=== PATIENT | male | born 1990 | race Hispanic/Latino ===

== ENCOUNTER 2021-01-15 18:43 | Emergency (ER) | payer BC ==
[2021-01-15] MEDS ORDERED: ONDANSETRON 4 MG/2 ML VIAL ONE (22:09)
[2021-01-15] MEDS ORDERED: DICYCLOMINE HCL 20 MG/2 ML AMP IM ONE (22:10)
[2021-01-15 22:20] LABS: Absolute Lymphocytes (CBC) 3.4 K/uL (0.7-4.9); Basophils % 0.7 % (0-1.3); Hematocrit 49.3 % (39.6-49.0); Lymphocytes % 24.9 % (15.3-44.8); MPV 10.2 fL (7.6-11.3); RBC Red Blood Cell Count 5.49 M/uL (4.33-5.43)
[2021-01-15 22:45] LABS: ALT/SGPT 46 U/L (12-78); AST/SGOT 18 U/L (15-37); Albumin 3.9 g/dL (3.4-5.0); Alkaline Phosphatase 84 U/L (45-117); BUN Blood Urea Nitrogen 11 mg/dL (7-18); Bicarbonate 29 mmol/L (21-32); Bilirubin Direct < 0.1 mg/dL (0-0.2); Bilirubin Total 0.4 mg/dL (0.2-1.0); Glucose Level 92 mg/dL (74-106); Lipase 156 U/L (73-393); Potassium 3.5 mmol/L (3.5-5.1); Protein, Total 7.9 g/dL (6.4-8.2); Sodium Level 141 mmol/L (136-145)
--- NOTE | 2021-01-15 23:08 | ER ---
Nurse's Notes [facility] Name: Ambrocio Fontenot Age: 30 yrs Sex: Male : 1990 Arrival Date: 01/15/2021 Time: 18:48 Bed 9 Private MD: Diagnosis: Abdominal pain, Generalized;Eosinophilia;Diarrhea, unspecified Presentation: 01/15 19:51 Chief complaint: Patient states: ABD pain X 4 days. Diarrhea and stomach cramps around ld1 my mid section. Denies N/V. Coronavirus screen: At this time, the client does not indicate any symptoms associated with coronavirus-19. Ebola Screen: No symptoms or risks identified at this time. Initial Sepsis Screen: Does the patient meet any 2 criteria? No. Patient's initial sepsis screen is negative. Does the patient have a suspected source of infection? No. Patient's initial sepsis screen is negative. Risk Assessment: Do you want to hurt yourself or someone else? Patient reports no desire to harm self or others. Onset of symptoms was January 15, 2021. 19:51 Method Of Arrival: Ambulatory ld1 19:51 Acuity: HUGO 3 ld1 Triage Assessment: 19:52 General: Appears in no apparent distress. comfortable, Behavior is calm, cooperative, ld1 appropriate for age. Pain: Complains of pain in right upper quadrant and left upper quadrant Pain does not radiate. Pain currently is 6 out of 10 on a pain scale. Quality of pain is described as burning, aching, throbbing, Pain began gradually, Is continuous. EENT: No signs and/or symptoms were reported regarding the EENT system. Neuro: Level of Consciousness is awake, alert, obeys commands, Oriented to person, place, time, situation, Appropriate for age. Cardiovascular: Capillary refill < 3 seconds Patient's skin is warm and dry. Respiratory: Airway is patent Respiratory effort is even, unlabored, Respiratory pattern is regular, symmetrical. GI: Abdomen is flat, non-distended. : No signs and/or symptoms were reported regarding the genitourinary system. Derm: No signs and/or symptoms reported regarding the dermatologic system. Musculoskeletal: No signs and/or symptoms reported regarding the musculoskeletal system. Historical: - Allergies: 19:52 Cold medicine; ld1 - Home Meds: 19:52 None [Active]; ld1 - PMHx: 19:52 None; ld1 - PSHx: 19:52 None; ld1 - Immunization history:: Adult Immunizations up to date, Client reports having NOT received the Covid vaccine. - Social history:: Smoking status: Patient denies any tobacco usage or history of. Patient uses alcohol, occasionally. Patient/guardian denies using street drugs. Screenin:25 Abuse screen: Denies threats or abuse. Nutritional screening: No deficits noted. bb Tuberculosis screening: No symptoms or risk factors identified. Fall Risk None identified. Assessment: 22:34 General: Appears in no apparent distress. Behavior is calm, cooperative. Pain: bb Complains of pain in abdomen. Neuro: Level of Consciousness is awake, alert, obeys commands, Oriented to person, place, time, situation. Cardiovascular: Capillary refill < 3 seconds. Respiratory: Respiratory effort is even, unlabored, Respiratory pattern is regular. GI: GI: Abdomen is non-distended. Derm: Skin is pink, warm \T\ dry. Musculoskeletal: Circulation, motion, and sensation intact. 23:43 Reassessment: Patient is alert, oriented x 3, equal unlabored respirations, skin bb warm/dry/pink. pt verbalized understanding of and agrees to plan of care discharge instructions given pt ambulated with steady gait to exit. Vital Signs: 19:51 BP 137 / 79; Pulse 73; Resp 19; Temp 98.6(O); Pulse Ox 98% on R/A; Weight 81.65 kg; ld1 Height 5 ft. 6 in. (167.64 cm); Pain 6/10; 21:48 BP 124 / 74; Pulse 58; Resp 14; Pulse Ox 100% on R/A; ds4 22:25 BP 120 / 76; Pulse 58; Resp 16 S; Pulse Ox 99% on R/A; bb 23:44 BP 115 / 63; Pulse 57; Resp 16 S; Temp 99(O); Pulse Ox 98% ; bb 19:51 Body Mass Index 29.05 (81.65 kg, 167.64 cm) ld1 ED Course: 18:48 Patient arrived in ED. ds1 19:52 Triage completed. ld1 19:52 Arm band placed on left wrist. ld1 21:32 Sekou Luther PA is PHCP. jr8 21:32 Shiva Ragland MD is Attending Physician. jr8 21:57 Inserted saline lock: 20 gauge in right antecubital area, using aseptic technique. ds4 Blood collected. 22:25 Patient has correct armband on for positive identification. Bed in low position. Side bb rails up X 1. 22:34 Trupti Rios, RN is Primary Nurse. bb 22:39 US Abdomen Limited In Process Unspecified. EDMS 23:07 Jh Jang MD is Referral Physician. jr8 23:44 No provider procedures requiring assistance completed. IV discontinued, intact, bb bleeding controlled, No redness/swelling at site. Pressure dressing applied. Administered Medications: 22:25 Drug: Bentyl (dicyclomine) 20 mg Route: IM; Site: right gluteus; bb 23:43 Follow up: Response: No adverse reaction bb 22:25 Drug: Zofran (Ondansetron) 4 mg Route: IVP; Site: right antecubital; bb 23:43 Follow up: Response: No adverse reaction bb Outcome: 23:07 Discharge ordered by . jr8 23:45 Discharged to home ambulatory. bb 23:45 Condition: stable 23:45 Discharge instructions given to patient, Instructed on discharge instructions, follow up and referral plans. medication usage, Demonstrated understanding of instructions, follow-up care, medications, Prescriptions given X 2. 23:45 Patient left the ED. bb Signatures: Dispatcher [employer] [facility] Nell Douglas ds1 Trupti Rios, RN RN bb Sekou Ltuher PA PA jr8 Aidan Leach ds4 Yasmeen Harrell RN RN ld1 Corrections: (The following items were deleted from the chart) 19:54 19:52 Allergies: No Known Allergies; ld1 ld1 19:55 19:51 Pulse 73bpm; Resp 19bpm; Pulse Ox 98% RA; Temp 98.6F Oral; 81.65 kg; Height 5 ft. ld1 6 in.; BMI: 29.0; Pain 6/10; ld1
--- NOTE | 2021-01-15 23:08 | EDPHYS ---
Physician Documentation [facility] Name: Ambrocio Fontenot Age: 30 yrs Sex: Male : 1990 Arrival Date: 01/15/2021 Time: 18:48 Bed 9 Private MD: ED Physician Shiva Ragland HPI: 01/15 22:29 This 30 yrs old Male presents to ER via Ambulatory with complaints of jr8 Abdominal Pain. 22:29 The patient presents with abdominal pain in the upper abdomen, in the right upper jr8 quadrant. Onset: The symptoms/episode began/occurred gradually. The symptoms do not radiate. Associated signs and symptoms: Pertinent positives: diarrhea. The symptoms are described as crampy. Modifying factors: The symptoms are alleviated by nothing, the symptoms are aggravated by nothing. Severity of pain: At its worst the pain was moderate in the emergency department the pain is unchanged. The patient has not experienced similar symptoms in the past. The patient has not recently seen a physician. Historical: - Allergies: 19:52 Cold medicine; ld1 - Home Meds: 19:52 None [Active]; ld1 - PMHx: 19:52 None; ld1 - PSHx: 19:52 None; ld1 - Immunization history:: Adult Immunizations up to date, Client reports having NOT received the Covid vaccine. - Social history:: Smoking status: Patient denies any tobacco usage or history of. Patient uses alcohol, occasionally. Patient/guardian denies using street drugs. ROS: 22:29 Eyes: Negative for injury, pain, redness, and discharge, ENT: Negative for injury, jr8 pain, and discharge, Neck: Negative for injury, pain, and swelling, Cardiovascular: Negative for chest pain, palpitations, and edema, Respiratory: Negative for shortness of breath, cough, wheezing, and pleuritic chest pain, Back: Negative for injury and pain, MS/Extremity: Negative for injury and deformity, Skin: Negative for injury, rash, and discoloration, Neuro: Negative for headache, weakness, numbness, tingling, and seizure. 22:29 Abdomen/GI: Positive for abdominal pain, diarrhea, Negative for nausea and vomiting. Exam: 22:29 Constitutional: This is a well developed, well nourished patient who is awake, alert, jr8 and in no acute distress. Cardiovascular: Regular rate and rhythm with a normal S1 and S2. No gallops, murmurs, or rubs. Normal PMI, no JVD. No pulse deficits. Respiratory: Lungs have equal breath sounds bilaterally, clear to auscultation and percussion. No rales, rhonchi or wheezes noted. No increased work of breathing, no retractions or nasal flaring. Back: No spinal tenderness. No costovertebral tenderness. Full range of motion. Skin: Warm, dry with normal turgor. Normal color with no rashes, no lesions, and no evidence of cellulitis. MS/ Extremity: Pulses equal, no cyanosis. Neurovascular intact. Full, normal range of motion. Neuro: Awake and alert, GCS 15, oriented to person, place, time, and situation. Cranial nerves II-XII grossly intact. Motor strength 5/5 in all extremities. Sensory grossly 22:29 Abdomen/GI: Inspection: abdomen appears normal, Bowel sounds: active, all quadrants, Palpation: soft, in all quadrants, mild abdominal tenderness, in the epigastric area and right upper quadrant, mass, is not appreciated, rebound tenderness, is not appreciated, voluntary guarding, is not appreciated, involuntary guarding, is not appreciated, no appreciated organomegaly, Indicators: McBurney's point is not tender, Gage's sign is negative, Rovsing's sign is negative, Liver: tenderness, is not appreciated. Vital Signs: 19:51 BP 137 / 79; Pulse 73; Resp 19; Temp 98.6(O); Pulse Ox 98% on R/A; Weight 81.65 kg; ld1 Height 5 ft. 6 in. (167.64 cm); Pain 6/10; 21:48 BP 124 / 74; Pulse 58; Resp 14; Pulse Ox 100% on R/A; ds4 22:25 BP 120 / 76; Pulse 58; Resp 16 S; Pulse Ox 99% on R/A; bb 23:44 BP 115 / 63; Pulse 57; Resp 16 S; Temp 99(O); Pulse Ox 98% ; bb 19:51 Body Mass Index 29.05 (81.65 kg, 167.64 cm) ld1 MDM: 21:32 Patient medically screened. jr8 23:02 Data reviewed: vital signs, nurses notes, lab test result(s), radiologic studies, jr8 ultrasound. Data interpreted: Pulse oximetry: on room air is 99 %. Interpretation: normal. 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 ED course: Discussed with patient that his ultrasound essentially was negative. Small polyp present but otherwise no other acute abnormality. Majority of his blood work was within normal limits although patient did have a moderately elevated eosinophilic count. This could possibly be a potential cause of his abdominal cramping and diarrhea. 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 01/15 21:47 Order name: Basic Metabolic Panel; Complete Time: 22:48 [facility] 01/15 21:47 Order name: CBC with Diff; Complete Time: 01:13 [facility] 01/15 21:47 Order name: Hepatic Function; Complete Time: 22:48 [facility] 01/15 21:47 Order name: Lipase; Complete Time: 22:48 [facility] 01/15 22:31 Order name: Manual Differential; Complete Time: 01:13 EDMS 01/15 23:26 Order name: Fecal Leukocyte Stain [facility] 01/15 21:47 Order name: IV Saline Lock; Complete Time: 22:00 [facility] 01/15 21:47 Order name: Labs collected and sent; Complete Time: 22:00 [facility] 01/15 21:47 Order name: US Abdomen Limited [facility] 01/15 23:26 Order name: Ova And Parasites [facility] 01/15 23:26 Order name: Stool Culture [facility] Administered Medications: 22:25 Drug: Bentyl (dicyclomine) 20 mg Route: IM; Site: right gluteus; bb 23:43 Follow up: Response: No adverse reaction bb 22:25 Drug: Zofran (Ondansetron) 4 mg Route: IVP; Site: right antecubital; bb 23:43 Follow up: Response: No adverse reaction bb Disposition Summary: 01/15/21 23:07 Discharge Ordered Location: Home [facility] Problem: new jr8 Symptoms: have improved jr8 Condition: Stable jr8 Diagnosis - Abdominal pain, Generalized jr8 - Eosinophilia jr8 - Diarrhea, unspecified jr8 Followup: jr8 - With: Jh Jang MD - When: 2 - 3 days - Reason: Recheck today's complaints, Continuance of care, Re-evaluation by your physician Discharge Instructions: - Discharge Summary Sheet jr8 - Abdominal Pain, Adult jr8 - Diarrhea, Adult jr8 Forms: - Medication Reconciliation Form jr8 - Thank You Letter jr8 - Antibiotic Education jr8 - Prescription Opioid Use jr8 Prescriptions: - Zofran 4 mg Oral Tablet - take 1 tablet by ORAL route every 12 hours As needed; 20 tablet; Refills: 0, jr8 Product Selection Permitted - dicyclomine 20 mg Oral Tablet - take 1 tablet by ORAL route 3 times per day As needed; 20 tablet; Refills: 0, jr8 Product Selection Permitted Addendum: 01/17/2021 09:20 Co-signature as Attending Physician, Shiva Ragland MD I agree with the assessment and c santa plan of care. Signatures: Dispatcher [employer] [facility]ME Shiva Ragland MD MD cha Ballard, Brenda, RN RN Sekou Zapien PA PA jr8 Yasmeen Harrell RN RN ld1 Corrections: (The following items were deleted from the chart) 01/15 19:54 19:52 Allergies: No Known Allergies; ld1 ld1
[2021-01-15 23:44] LABS: Blood Morphology Comment NOT SEEN (NOT SEEN); Platelet Estimate ADEQ
[2021-01-15 23:56] VITALS: BP 115/63; TEMP 99; O2SAT 98
--- NOTE | 2021-01-16 08:34 | RAD REPORT ---
EXAM DESCRIPTION: US - Abdomen Exam Limited - 01/15/2021 10:39 pm CLINICAL HISTORY: Abdominal pain. COMPARISON: None. FINDINGS: The gallbladder wall is not thickened. A gallstone is not seen. 4 millimeter gallbladder polyp The biliary tree is normal caliber. IMPRESSION: 4 millimeter gallbladder polyp. Follow-up ultrasound in 1 year recommended
== END 2021-01-15 23:45 | disposition home or self-care (01) ==
LOC: ER 18:43
DX: D72.10 Eosinophilia, unspecified (principal); R19.7 Diarrhea, unspecified
CPT/HCPCS: 87045; 85025; 80048; 36415; 89055; 87177; 80076; 87046; 87209; 83690; 76705; 96372; 96374; 99284; J0500; J2405

== ENCOUNTER 2021-11-22 06:30 | Observation (INO) | payer BC ==
[2021-11-22] MEDS ORDERED: ONDANSETRON 4 MG/2 ML VIAL ONE ×3 (07:09→13:18)
[2021-11-22] MEDS ORDERED: FAMOTIDINE 20 MG/2 ML VIAL IV ONE (07:09)
[2021-11-22] MEDS ORDERED: MORPHINE 4 MG/ML SYR ONE (07:09)
[2021-11-22] MEDS ORDERED: NA CHLORIDE 0.9% 1,000 ML ONE (07:10)
[2021-11-22 07:34] LABS: Absolute Lymphocytes (CBC) 2.1 K/uL (0.7-4.9); Lymphocytes % 11.2 % (15.3-44.8); MCV 87.6 fL (80-100); MPV 10.3 fL (7.6-11.3); RBC Red Blood Cell Count 5.37 M/uL (4.33-5.43)
[2021-11-22 07:49] LABS: Albumin 4.5 g/dL (3.4-5.0); Bilirubin Total 0.6 mg/dL (0.2-1.0); Potassium 3.4 mmol/L (3.5-5.1); Protein, Total 8.3 g/dL (6.4-8.2)
--- NOTE | 2021-11-22 08:03 | RAD REPORT ---
EXAM DESCRIPTION: US - Abdomen Exam Limited - 11/22/2021 7:34 am CLINICAL HISTORY: ABD PAIN COMPARISON: <Comparisons> FINDINGS: The gallbladder demonstrates a shadowing gallstone No pericholecystic fluid or gallbladder wall thickening. The common bile duct is normal measuring 4 mm. The liver demonstrates no findings of intrahepatic biliary dilatation. IMPRESSION: Cholelithiasis without sonographic evidence acute cholecystitis.
--- NOTE | 2021-11-22 08:21 | RAD REPORT ---
EXAM DESCRIPTION: CTAbdomen Pelvis W Contrast - 11/22/2021 8:08 am CLINICAL HISTORY: Abdominal pain, acute, nonlocalized COMPARISON: Abdomen Exam Limited dated 11/22/2021; CTSTONE PROTOCOL dated 09/29/2013 TECHNIQUE: CT of the abdomen and pelvis was performed. All CT scans are performed using dose optimization technique as appropriate and may include automated exposure control or mA/KV adjustment according to patient size. FINDINGS: Lower chest: No acute abnormality. Liver: No acute abnormality or suspicious lesions. Biliary: No biliary ductal dilatation. Stomach: No significant focal abnormality. Duodenum: No significant focal abnormality. Pancreas: No significant abnormality. Spleen: No significant abnormality. Adrenal: No suspicious lesions. Kidney/ureter: No hydronephrosis. No renal calculi. Retroperitoneum: No retroperitoneal adenopathy. Vascular: No aneurysm. Bowel: Dilated appendix in the right lower quadrant the appendix is mostly fluid-filled and measures approximately 8 millimeters.. Peritoneum: Trace free fluid. Bladder: Grossly unremarkable. Reproductive: No adnexal masses. Bones: No acute fracture. Other: n/a IMPRESSION: Mildly dilated appendix in the right lower quadrant concerning for early or mild acute a ppendicitis.
[2021-11-22 08:25] LABS: Urine Blood Negative (Negative); Urine Glucose Negative (Negative); Urine Protein Negative (Negative); Urine pH 8.5 (5.0-7.0)
[2021-11-22] MEDS ORDERED: PIPERACIL/TAZO 4.5 GM VIAL IV ONE (08:31)
[2021-11-22] MEDS ORDERED: HYDROMORPHONE HCL 0.5 MG/0.5 ML INJ ONE (08:31)
[2021-11-22] MEDS ORDERED: NA CHLORIDE 0.9% 100 ML ONE (08:31)
[2021-11-22 09:08] LABS: SARS-CoV-2 Antigen Rapid Res Negative (Negative)
--- NOTE | 2021-11-22 09:08 | EDPHYS ---
Physician Documentation [facility] Name: Ambrocio Fontenot Age: 31 yrs Sex: Male : 1990 Arrival Date: 11/22/2021 Time: 06:36 Bed 7 Private MD: ED Physician Casa Dumont HPI: 11/22 07:01 This 31 yrs old Male presents to ER via Ambulatory with complaints of rodney Abdominal Cramping, Nausea, Dizziness. 07:02 The patient presents with abdominal pain. rodney 07:39 Onset: The symptoms/episode began/occurred 2 AM . The symptoms do not radiate. jr11 Associated signs and symptoms: Pertinent positives: nausea and vomiting, Pertinent negatives: fever, testicular pain. The symptoms are described as achy, crampy, sharp. Modifying factors: The symptoms are alleviated by nothing, the symptoms are aggravated by. Severity of pain: At its worst the pain was severe in the emergency department the pain is unchanged. Pt with h/o same pain 2 weeks ago, lasted 2 days and resolved. Pt returns today bc pain worsened. . Historical: - Allergies: 06:56 Cold medicine; jb4 - Home Meds: 06:56 None [Active]; jb4 - PMHx: 06:56 None; jb4 - PSHx: 06:56 None; jb4 - Immunization history:: Adult Immunizations up to date. - Social history:: Smoking status: Patient denies any tobacco usage or history of. Patient uses alcohol. - Family history:: not pertinent. ROS: 07:02 Constitutional: Negative for fever, chills, and weight loss, Eyes: Negative for injury, rodney pain, redness, and discharge, ENT: Negative for injury, pain, and discharge, Neck: Negative for injury, pain, and swelling, Cardiovascular: Negative for chest pain, palpitations, and edema, Respiratory: Negative for shortness of breath, cough, wheezing, and pleuritic chest pain, Back: Negative for injury and pain, : Negative for injury, bleeding, discharge, and swelling, MS/Extremity: Negative for injury and deformity, Skin: Negative for injury, rash, and discoloration, Neuro: Negative for headache, weakness, numbness, tingling, and seizure, Psych: Negative for depression, anxiety, suicide ideation, homicidal ideation, and hallucinations, Allergy/Immunology: Negative for hives, rash, and allergies, Endocrine: Negative for neck swelling, polydipsia, polyuria, polyphagia, and marked weight changes, Hematologic/Lymphatic: Negative for swollen nodes, abnormal bleeding, and unusual bruising. 07:02 Abdomen/GI: Positive for abdominal pain, of the right upper quadrant, left upper quadrant, right lower quadrant and left lower quadrant. Exam: 07:02 Constitutional: This is a well developed, well nourished patient who is awake, alert, rodney and in no acute distress. Head/Face: Normocephalic, atraumatic. Eyes: Pupils equal round and reactive to light, extra-ocular motions intact. Lids and lashes normal. Conjunctiva and sclera are non-icteric and not injected. Cornea within normal limits. Periorbital areas with no swelling, redness, or edema. ENT: Nares patent. No nasal discharge, no septal abnormalities noted. Tympanic membranes are normal and external auditory canals are clear. Oropharynx with no redness, swelling, or masses, exudates, or evidence of obstruction, uvula midline. Mucous membranes moist. Neck: Trachea midline, no thyromegaly or masses palpated, and no cervical lymphadenopathy. Supple, full range of motion without nuchal rigidity, or vertebral point tenderness. No Meningismus. Chest/axilla: Normal chest wall appearance and motion. Nontender with no deformity. No lesions are appreciated. Cardiovascular: Regular rate and rhythm with a normal S1 and S2. No gallops, murmurs, or rubs. Normal PMI, no JVD. No pulse deficits. Respiratory: Lungs have equal breath sounds bilaterally, clear to auscultation and percussion. No rales, rhonchi or wheezes noted. No increased work of breathing, no retractions or nasal flaring. Back: No spinal tenderness. No costovertebral tenderness. Full range of motion. Male : Normal genitalia with no discharge or lesions. Skin: Warm, dry with normal turgor. Normal color with no rashes, no lesions, and no evidence of cellulitis. MS/ Extremity: Pulses equal, no cyanosis. Neurovascular intact. Full, normal range of motion. Neuro: Awake and alert, GCS 15, oriented to person, place, time, and situation. Cranial nerves II-XII grossly intact. Motor strength 5/5 in all extremities. Sensory grossly intact. Cerebellar exam normal. Normal gait. Psych: Awake, alert, with orientation to person, place and time. Behavior, mood, and affect are within normal limits. 07:02 Abdomen/GI: Inspection: abdomen appears normal, Bowel sounds: active, Palpation: moderate abdominal tenderness, in all quadrants, Liver: tenderness, that is mild, Hernia: not appreciated. Vital Signs: 06:53 BP 130 / 67; Pulse 85; Resp 50; Temp 99.1; Pulse Ox 100% on R/A; Weight 81.65 kg (R); jb4 Height 5 ft. 6 in. (167.64 cm) (R); Pain 10/10; 07:57 BP 114 / 60; Pulse 72; Resp 17; Pulse Ox 95% on R/A; ll1 09:00 BP 125 / 57; Pulse 88; Resp 18; Pulse Ox 100% on R/A; kr3 10:00 BP 118 / 62; Pulse 74; Resp 18; Pulse Ox 96% on R/A; kr3 06:53 Body Mass Index 29.05 (81.65 kg, 167.64 cm) jb4 MDM: 06:59 Patient medically screened. rodney 07:03 Differential diagnosis: Cholelithiasis, diverticulitis, gastritis, gastroesophageal rodney reflux disease, non-specific abd pain, pancreatitis, Peptic Ulcer Disease. Data reviewed: vital signs, nurses notes, lab test result(s), radiologic studies, CT scan, ultrasound. 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 Counseling: I had a detailed discussion with the patient and/or guardian regarding: the historical points, exam findings, and any diagnostic results supporting the discharge/admit diagnosis, lab results, radiology results. 11/22 07:01 Order name: CBC with Diff; Complete Time: 07:52 rodney 11/22 07:01 Order name: CMP; Complete Time: 07:52 rodney 11/22 07:01 Order name: Lipase; Complete Time: 07:52 rodney 11/22 07:01 Order name: CT Abd/Pelvis - IV Contrast Only rodney 11/22 08:26 Order name: Urine Dipstick-Ancillary; Complete Time: 08:28 EDMS 11/22 08:29 Order name: SARS RAPID; Complete Time: 09:14 em1 11/22 07:01 Order name: US Abdomen Limited; Complete Time: 08:20 [facility] 11/22 07:01 Order name: IV Saline Lock; Complete Time: 07:25 [facility] 11/22 07:01 Order name: Labs collected and sent; Complete Time: 07:26 [facility] 11/22 07:01 Order name: Urine Dipstick-Ancillary (obtain specimen); Complete Time: 08:25 [facility] 11/22 09:03 Order name: NPO; Complete Time: 09:08 [facility] Administered Medications: 12:35 Discontinued: Potassium Chloride 10 mEq IV at calculated rate once; administer over 1-2 ll1 hours 07:24 Drug: morphine 4 mg Route: IVP; Infused Over: 4 mins; Site: right antecubital; kr3 07:42 Follow up: Response: No adverse reaction; Pain is decreased; RASS: Alert and Calm (0) ll1 07:25 Drug: Zofran (Ondansetron) 4 mg Route: IVP; Site: right antecubital; kr3 07:42 Follow up: Response: No adverse reaction ll1 07:42 Drug: NS 0.9% 1000 ml Route: IV; Rate: 1 bolus; Site: right antecubital; ll1 09:26 Follow up: Response: No adverse reaction; IV Status: Completed infusion; IV Intake: kr3 1000ml 07:42 Drug: Pepcid (famotidine) 20 mg Route: IVP; Site: right antecubital; ll1 09:26 Follow up: Response: No adverse reaction kr3 08:47 Drug: Dilaudid (HYDROmorphone) 0.5 mg Route: IVP; Site: right antecubital; kr3 09:27 Follow up: Response: No adverse reaction kr3 09:29 Follow up: Response: RASS: Drowsy (-1) kr3 08:47 Drug: Zosyn (piperacillin-tazobactam) 4.5 grams Route: IVPB; Infused Over: 60 mins; kr3 Site: right antecubital; 09:50 Follow up: Response: No adverse reaction; IV Status: Completed infusion; IV Intake: ll1 100ml 09:45 Drug: Lactated Ringers Solution 1000 ml Route: IV; Rate: 125 ml/hr; Site: right kr3 antecubital; 12:38 Follow up: Response: No adverse reaction; IV Status: Infusion continued; IV Intake: ll1 500ml 10:37 Drug: Zofran (Ondansetron) 4 mg Route: IVP; Site: right antecubital; kr3 12:29 Follow up: Response: No adverse reaction ll1 12:20 Drug: Potassium Chloride 10 mEq Route: IV; Rate: calculated rate; Site: right ll1 antecubital; 12:36 Follow up: Response: Other; RASS: Alert and Calm (0); IV Status: Order to discontinue ll1 infusion; IV Intake: 5ml Disposition Summary: 11/22/21 09:08 Hospitalization Ordered Hospitalization Status: Observation jr Provider: Gaetano Martines [facility] Location: Operating Room [facility] Condition: Stable [facility] Problem: new [facility] Symptoms: are unchanged [facility] Bed/Room Type: Standard [facility] Room Assignment: [facility] Diagnosis - Acute appendicitis with localized peritonitis [facility] Forms: - Medication Reconciliation Form jr11 - SBAR form jr11 Signatures: Dispatcher [employer] EDMS Shiva Ragland MD MD cha Marinas, Patrick, RETAIL BAKERY MANAGER RETAIL BAKERY MANAGER pm1 Carlos Anthony, RN RN jb4 Kannan Solorzano RN RN ll1 Casa Dumont MD MD jr11 Palma Camp RN RN kr3
--- NOTE | 2021-11-22 09:08 | ER ---
Nurse's Notes [facility] Name: Ambrocio Fontenot Age: 31 yrs Sex: Male : 1990 Arrival Date: 11/22/2021 Time: 06:36 Bed 7 Private MD: Diagnosis: Acute appendicitis with localized peritonitis Presentation: 11/22 06:53 Chief complaint: Patient states: I started having mid abdomenal pain at 0200 that now jb4 radiates to my lower back. That started at 0200, I began getting dizzy around 0400. I vomited once prior to coming. Coronavirus screen: At this time, the client does not indicate any symptoms associated with coronavirus-19. Ebola Screen: No symptoms or risks identified at this time. Initial Sepsis Screen: Does the patient meet any 2 criteria? RR > 20 per min. Yes Does the patient have a suspected source of infection? Yes: Acute abdominal pain. Risk Assessment: Do you want to hurt yourself or someone else? Patient reports no desire to harm self or others. Onset of symptoms was November 22, 2021. Transition of care: patient was not received from another setting of care. 06:53 Method Of Arrival: Ambulatory jb4 06:53 Acuity: HUGO 2 jb4 Triage Assessment: 06:56 General: Appears in no apparent distress. uncomfortable, ill, Behavior is cooperative, jb4 anxious. Pain: Complains of pain in umbilical area Pain radiates to low back area Pain currently is 10 out of 10 on a pain scale. Quality of pain is described as crampy. EENT: No signs and/or symptoms were reported regarding the EENT system. Neuro: Level of Consciousness is awake, alert, obeys commands, Oriented to person, place, time, situation. Cardiovascular: Patient's skin is warm and dry. Respiratory: Airway is patent Respiratory effort is even, labored, Respiratory pattern is symmetrical, hyperventilation. GI: Abdomen is flat, non-distended, Bowel sounds present X 4 quads. Abd is soft X 4 quads Abdomen is tender to palpation X 4 quads. : No signs and/or symptoms were reported regarding the genitourinary system. Derm: Skin is intact, Skin is dry, Skin is pale, Skin temperature is warm. Musculoskeletal: Circulation, motion, and sensation intact. Range of motion: intact in all extremities. Historical: - Allergies: 06:56 Cold medicine; jb4 - Home Meds: 06:56 None [Active]; jb4 - PMHx: 06:56 None; jb4 - PSHx: 06:56 None; jb4 - Immunization history:: Adult Immunizations up to date. - Social history:: Smoking status: Patient denies any tobacco usage or history of. Patient uses alcohol. - Family history:: not pertinent. Assessment: 07:00 Reassessment: No changes from previously documented assessment. report received from ll1 nightclub manager RN. 07:20 Reassessment: No changes from previously documented assessment. Patient and/or family ll1 updated on plan of care and expected duration. Pain level reassessed. Patient is alert, oriented x 3, equal unlabored respirations, skin warm/dry/pink. 08:20 Reassessment: No changes from previously documented assessment. Patient and/or family kr3 updated on plan of care and expected duration. Pain level reassessed. 09:20 Reassessment: No changes from previously documented assessment. Patient and/or family kr3 updated on plan of care and expected duration. Pain level reassessed. Patient states symptoms have improved. 10:20 Reassessment: No changes from previously documented assessment. Patient and/or family kr3 updated on plan of care and expected duration. Pain level reassessed. 12:25 Reassessment: R arm started cramping uncontrollably. Potassium infusion stopped. Dr. kelly Dumont informed. Did not restart potassium. Vital Signs: 06:53 BP 130 / 67; Pulse 85; Resp 50; Temp 99.1; Pulse Ox 100% on R/A; Weight 81.65 kg (R); jb4 Height 5 ft. 6 in. (167.64 cm) (R); Pain 10/10; 07:57 BP 114 / 60; Pulse 72; Resp 17; Pulse Ox 95% on R/A; ll1 09:00 BP 125 / 57; Pulse 88; Resp 18; Pulse Ox 100% on R/A; kr3 10:00 BP 118 / 62; Pulse 74; Resp 18; Pulse Ox 96% on R/A; kr3 06:53 Body Mass Index 29.05 (81.65 kg, 167.64 cm) [facility] ED Course: 06:36 Patient arrived in ED. ja2 06:56 Triage completed. jb4 06:56 Arm band placed on right wrist. jb4 06:59 Shiva Ragland MD is Attending Physician. rodney 07:06 Palma Camp RN is Primary Nurse. kr3 07:15 Attending Physician role handed off by Shiva Ragland MD jr11 07:15 Casa Dumont MD is Attending Physician. jr11 07:25 Inserted saline lock: 20 gauge in right antecubital area, using aseptic technique. kr3 Blood collected. 07:36 US Abdomen Limited In Process Unspecified. EDMS 08:10 CT Abd/Pelvis - IV Contrast Only In Process Unspecified. EDMS 09:07 Gaetano Martines MD is Hospitalizing Provider. jr11 Administered Medications: 12:35 Discontinued: Potassium Chloride 10 mEq IV at calculated rate once; administer over 1-2 ll1 hours 07:24 Drug: morphine 4 mg Route: IVP; Infused Over: 4 mins; Site: right antecubital; kr3 07:42 Follow up: Response: No adverse reaction; Pain is decreased; RASS: Alert and Calm (0) ll1 07:25 Drug: Zofran (Ondansetron) 4 mg Route: IVP; Site: right antecubital; kr3 07:42 Follow up: Response: No adverse reaction ll1 07:42 Drug: NS 0.9% 1000 ml Route: IV; Rate: 1 bolus; Site: right antecubital; ll1 09:26 Follow up: Response: No adverse reaction; IV Status: Completed infusion; IV Intake: kr3 1000ml 07:42 Drug: Pepcid (famotidine) 20 mg Route: IVP; Site: right antecubital; ll1 09:26 Follow up: Response: No adverse reaction kr3 08:47 Drug: Dilaudid (HYDROmorphone) 0.5 mg Route: IVP; Site: right antecubital; kr3 09:27 Follow up: Response: No adverse reaction kr3 09:29 Follow up: Response: RASS: Drowsy (-1) kr3 08:47 Drug: Zosyn (piperacillin-tazobactam) 4.5 grams Route: IVPB; Infused Over: 60 mins; kr3 Site: right antecubital; 09:50 Follow up: Response: No adverse reaction; IV Status: Completed infusion; IV Intake: ll1 100ml 09:45 Drug: Lactated Ringers Solution 1000 ml Route: IV; Rate: 125 ml/hr; Site: right kr3 antecubital; 12:38 Follow up: Response: No adverse reaction; IV Status: Infusion continued; IV Intake: ll1 500ml 10:37 Drug: Zofran (Ondansetron) 4 mg Route: IVP; Site: right antecubital; kr3 12:29 Follow up: Response: No adverse reaction ll1 12:20 Drug: Potassium Chloride 10 mEq Route: IV; Rate: calculated rate; Site: right ll1 antecubital; 12:36 Follow up: Response: Other; RASS: Alert and Calm (0); IV Status: Order to discontinue ll1 infusion; IV Intake: 5ml Intake: 09:26 IV: 1000ml; Total: 1000ml. kr3 09:50 IV: 100ml; Total: 1100ml. ll1 12:36 IV: 5ml; Total: 1105ml. ll1 12:38 IV: 500ml; Total: 1605ml. ll1 Outcome: 09:08 Decision to Hospitalize by Provider. jr11 12:39 Patient left the ED. ll1 Signatures: Dispatcher [employer] EDShiva Garcia MD MD cha Bryson, James, RN RN jb4 Kannan Solorzano RN RN ll1 Mary Faith Jose, MD MD jr11 Palma Camp RN RN kr3
[2021-11-22] MEDS ORDERED: Ringers Lactate 1,000 ML IV ONE ×3 (09:09→15:29)
[2021-11-22] MEDS ORDERED: KCL 20 MEQ/100 mL IVPB 100 ML IV ONE (12:10)
[2021-11-22] MEDS ORDERED: propofoL 200 MG/20 ML VIAL IV ONE (13:17)
[2021-11-22] MEDS ORDERED: KETOROLAC 30 MG/ML INJ ONE (13:18)
[2021-11-22] MEDS ORDERED: MIDAZOLAM HCL 2 MG/2 ML INJ ONE (13:18)
[2021-11-22] MEDS ORDERED: dexAMETHasone 10 MG/ML VIAL ONE (13:18)
[2021-11-22] MEDS ORDERED: FENTANYL CITR 250 MCG/5 ML ONE (13:18)
[2021-11-22] MEDS ORDERED: ROCURONIUM 50 MG/5 ML VIAL IV ONE (13:18)
[2021-11-22] MEDS ORDERED: Phenylephrine HCl 10 MG/ML 1 ML VIAL ONE (14:03)
[2021-11-22] MEDS: BUPIVACAINE 0.25% PF 30 ML VIAL ONE ×2 (14:08→14:09)
[2021-11-22] MEDS ORDERED: NEOSTIGMINE 1 MG/ML -10 ML VIAL ONE (14:32)
[2021-11-22] MEDS ORDERED: GLYCOPYRROLATE 0.2 MG/ML SYR ONE (14:38)
--- NOTE | 2021-11-22 14:42 | P.OP ---
Preoperative diagnosis: Acute Appendicitis Postoperative diagnosis: Acute Appendicitis Primary procedure: Laparoscopic appendectomy Anesthesia: GETA + Local Estimated blood loss: <5cc Specimen: Vermiform Appendix Findings: non-perforated appendicitis Complications: None Transferred to: Recovery Room Condition: Good
[2021-11-22] MEDS ORDERED: ONDANSETRON 4 MG (ODT) TAB PO PRN (14:45)
[2021-11-22] MEDS ORDERED: EPHEDRINE SULF 50 MG/ML VIAL ONE (14:54)
[2021-11-22 15:43] VITALS: O2SAT 98
[2021-11-22] MEDS: INSULIN -REGULAR HUMAN 50 UNIT/0.5 ML ML SQ SCH ×2 (16:30→20:10)
[2021-11-22] MEDS: D5.45NS W/KCL 20MEQ 1,000 ML IV SCH (16:53)
[2021-11-22] MEDS: PIPER TAZO 3.375 GM in NA CHLORIDE 0.9% 100 ML IV SCH (16:54)
[2021-11-22] MEDS: HEPARIN 5000 UNIT/ML 1 ML VIAL SQ SCH (16:54)
[2021-11-22] MEDS ORDERED: INFLUENZA VACCINE (for 6+ mo) 0.5 ML DOSE IMVAC ONE (18:00)
[2021-11-22] MEDS ORDERED: POTASSIUM CL SA 10 MEQ TAB PO ONE (20:12)
[2021-11-22] MEDS: HYDROCODONE/APAP 7.5/325 MG TAB PO PRN (20:36)
[2021-11-23] MEDS: D5.45NS W/KCL 20MEQ 1,000 ML IV SCH (00:28)
[2021-11-23] MEDS: PIPER TAZO 3.375 GM in NA CHLORIDE 0.9% 100 ML IV SCH ×2 (00:29→08:55)
[2021-11-23] MEDS: HEPARIN 5000 UNIT/ML 1 ML VIAL SQ SCH ×2 (00:29→09:06)
--- NOTE | 2021-11-23 02:13 | HP ---
Date of Admission: 11/22/2021 Brief History Of Present Illness: The patient is a 31-year-old male who presents to the hospital wit h abdominal pain beginning in the periumbilical position approximately at 1 a.m. with some radiation to the lower abdomen as well as in the periumbilical region, which continues to persist, associated w ith some mild nausea; no vomiting, slight chills and intermittent fever. He has never had similar ep isodes in the past. No new food exposures. No sick contacts. No recent travel. As stated, he has never had similar episodes in the past. Past Medical History: Negative. Past Surgical History: Negative. Allergies: NO KNOWN DRUG ALLERGIES. Medications: None. Social History: He denies smoking. Drinks alcohol only socially. Denies any recreational drug use. Review of Systems: Ten-point review of systems other than HPI, denies. Physical Examination: At the time of examination: General: He is awake, alert, and oriented. Psychiatric: He is appropriate and conversive. HEENT: Normocephalic. Sclerae anicteric. Mucous membranes are moist. Oropharynx clear. Neck: Supple without JVD. Chest: Normal expansion and excursion. Cardiovascular: Regular rate and rhythm. Pulmonary: Clear to auscultation bilaterally. Abdomen: Soft with positive right lower quadrant tenderness to palpation. Positive periumbilical te nderness. There is tenderness and peritonitis at McBurney's point. Extremities: No clubbing, cyanosis, or edema. SKIN: Warm and dry. Laboratory Data: Revealed a white blood cell count of 18.4, hemoglobin is 6.5, hematocrit 47.0, plat elet count is 197. His neutrophils are 75%. His sodium 138, potassium 3.4, chloride 108, carbon sd xide is 28, BUN 16, creatinine is 1.13. Total bilirubin 0.6, AST 20, ALT 60, alkaline phosphatase is 70, lipase 125. His UA was essentially negative. Imaging: He had a CT scan performed of the abdomen and pelvis, officially read as dilated appendix i n the right lower quadrant. The appendix is mostly fluid-filled and measures approximately 8 mm. I have personally reviewed the patient's CT scan and find that I believe he may have a right hydrocel e/hernia based on imaging. I do not believe this is related to his current condition. The patient a grees to proceed as indicated. I have discussed the plan with the patient as above. Assessment And Plan: This is a 31-year-old male who presents with signs and symptoms of an acute ear ly non-perforated appendicitis. 1.IV fluid hydration. 2.Antibiotic coverage with Zosyn 3.375. 3.I have explained the risks, benefits, and alternatives of laparoscopic possible open appendectomy including, but not limited to bleeding, infection, damage to surrounding tissue, need for further ope rative procedures. The patient agrees to proceed as indicated. MELISA/SAL Voice ID: [id number]
--- NOTE | 2021-11-23 03:00 | OP ---
Date of Procedure: 11/22/2021 Surgeon: Gaetano Martines MD, Preoperative Diagnosis: Acute appendicitis. Postoperative Diagnosis: Acute appendicitis. Procedure Performed: Laparoscopic appendectomy. Anesthesia: General endotracheal plus local with 0.25% Marcaine. Estimated Blood Loss: Less than 5 cc. Specimen: Vermiform appendix. Findings: Acute nonperforated appendicitis. Complications: None. Disposition: Patient transferred recovery room in good condition. Procedure In Detail: After informed consent was obtained, the patient was brought to the operating r oom, prepped and draped in the usual sterile fashion. After adequate anesthesia was achieved, the in fraumbilical area was anesthetized with 0.25% Marcaine, sharply incised, and 5 mm trocars placed unde r direct visualization without any evidence of complication. There was no injury to vital structures upon entry into the abdomen. Additional trocar was placed in the right lower quadrant. This was si milarly anesthetized, and sharply incised. A 5 mm trocar was placed under direct visualization witho ut any evidence of complication. An additional trocars were placed in the supraumbilical position, t his was a 5 mm trocar placed under direct visualization without any evidence of complication. The in fraumbilical was then upsized to a 12 mm under direct visualization without any evidence of complicat ion. The patient was positioned head down right side up position. Ratcheted grasper was used to gra sp the patient's appendix at this point and elevated. The mesoappendiceal window was created with a [place] retractor. The Endo ABRAHAN smith load 45 was fired across the base of the appendix with good stephanie roximation of tissues and no leakage at the staple line. I then proceeded to take the mesoappendix d own using a LigaSure device without any evidence of complication. The appendix was then placed in En doCatch bag and removed through the umbilical trocar site and sent off for pathologic examination. T he abdomen was then copiously irrigated including the pelvis and irrigated until the liquid was compl etely clear and suctioned out until completely dry. The patient was positioned back in a neutral pos ition. The remaining effluent was suctioned out. I then closed the umbilical trocar site using a Maddison Sterling suture passer with 0 Vicryl in interrupted fashion and good approximation of tissues. The abdomen was completely desufflated under direct visualization without any evidence of complicatio n. Remaining trocar sites were then irrigated and closed with 4-0 Monocryl in running fashion. Derm abond was placed over top. The patient tolerated the procedure without evidence of any complication and was transferred back in good condition. All counts were correct at the end of the case. MELISA/SAL Voice ID: [id number] Report ID: [id number]
[2021-11-23 05:52] LABS: Absolute Lymphocytes (CBC) 1.3 K/uL (0.7-4.9); Hematocrit 38.6 % (39.6-49.0); Lymphocytes % 8.1 % (15.3-44.8); MCV 88.9 fL (80-100); MPV 10.1 fL (7.6-11.3); RBC Red Blood Cell Count 4.34 M/uL (4.33-5.43)
[2021-11-23 05:54] LABS: Magnesium 2.1 mg/dL (1.8-2.4); Phosphorus 2.7 mg/dL (2.5-4.9); Potassium 3.9 mmol/L (3.5-5.1)
[2021-11-23] MEDS: INSULIN -REGULAR HUMAN 50 UNIT/0.5 ML ML SQ SCH (07:30)
[2021-11-23] MEDS: HYDROCODONE/APAP 7.5/325 MG TAB PO PRN (07:31)
[2021-11-23 08:40] VITALS: TEMP 98.3
[2021-11-23 10:55] VITALS: BMI 30.9
[2021-11-23 11:58] VITALS: BP 98/53
== END 2021-11-23 12:09 | disposition home or self-care (01) ==
LOC: ER 06:30 → ERHOLD 09:13 → 4TH 15:03
PROVIDERS: ADMIT Surgery; ATTEND Surgery
PROC: 0DTJ4ZZ Resection of Appendix, Percutaneous Endoscopic Approach (ICD-10-PCS; principal; 2021-11-22 13:45)
DX: K35.80 Unspecified acute appendicitis (principal); Z20.822 Contact with and (suspected) exposure to COVID-19
CPT/HCPCS: 96365; 96367; 96361; 85025 ×2; 80048; 36415; 83735; 84100; 82947 ×3; 88304; 81003; 83690; 80053; 74177; 76705; 94010; 96375; 99284; 87811; 44970; Q9967; J2704; J2710; J2370; J1644 ×3; J2543 ×3; J3480; J2250; J3010; J1100; J1170; G0378 ×4; J7120 ×3; J7030; J2405 ×3

== ENCOUNTER 2022-10-28 22:30 | Observation (INO) | payer BC ==
[2022-10-28 23:03] LABS: Specific Gravity 1.016 (1.005-1.030); Urine Bilirubin NEGATIVE (Negative); Urine Blood Negative (Negative); Urine Clarity Clear (Clear); Urine Color Colorless (Yellow); Urine Glucose NEGATIVE (Negative); Urine Protein NEGATIVE (Negative); Urine Urobilinogen Normal (Normal); Urine pH 6.5 (5.0-7.0)
[2022-10-28 23:06] LABS: Absolute Lymphocytes (CBC) 3.6 K/uL (0.7-4.9); Hematocrit 45.3 % (39.6-49.0); Lymphocytes % 34.9 % (15.3-44.8); MCV 89.9 fL (80-100); MPV 10.5 fL (7.6-11.3); Platelets 233 thou/uL (152-406); RBC Red Blood Cell Count 5.04 M/uL (4.33-5.43)
[2022-10-28 23:23] LABS: Albumin 4.2 g/dL (3.4-5.0); Bilirubin Total 0.3 mg/dL (0.2-1.0); Potassium 3.4 mEq/L (3.5-5.1); Protein, Total 7.8 g/dL (6.4-8.2)
--- NOTE | 2022-10-28 23:34 | ER ---
Nurse's Notes [facility] Name: Ambrocio Fontenot Age: 32 yrs Sex: Male : 1990 Arrival Date: 10/28/2022 Time: 22:30 Bed 11 Private MD: Diagnosis: Epigastric abdominal tenderness;Cholecystitis, unspecified;Other cholelithiasis with obstruction-STONE IN NECK Presentation: 10/28 22:36 Chief complaint: Patient states: right upper quadrant pain radiating to back X2 hours. lg3 sudden onset. described as stabbing pain 9/10 pain. Coronavirus screen: Client denies travel out of the [place] in the last 14 days. At this time, the client does not indicate any symptoms associated with coronavirus-19. Ebola Screen: No symptoms or risks identified at this time. Initial Sepsis Screen: Does the patient meet any 2 criteria? No. Patient's initial sepsis screen is negative. Does the patient have a suspected source of infection? No. Patient's initial sepsis screen is negative. Risk Assessment: Do you want to hurt yourself or someone else? Patient reports no desire to harm self or others. Onset of symptoms was October 28, 2022. 22:36 Method Of Arrival: Ambulatory lg3 22:36 Acuity: HUGO 3 lg3 Triage Assessment: 22:38 General: Appears in no apparent distress. uncomfortable, Behavior is calm, cooperative. lg3 Pain: Complains of pain in abdomen Pain radiates to back. EENT: No deficits noted. No signs and/or symptoms were reported regarding the EENT system. Neuro: No deficits noted. Locke Agitation-Sedation Scale (RASS): 0 - Alert and Calm Level of Consciousness is awake, alert, obeys commands, Oriented to person, place, time, situation. Cardiovascular: No deficits noted. Denies chest pain, shortness of breath, Capillary refill < 3 seconds Clubbing of nail beds is absent JVD is absent Patient's skin is warm and dry. Respiratory: No deficits noted. Airway is patent Respiratory effort is even, unlabored, Respiratory pattern is regular, symmetrical. GI: Abdomen is flat, non-distended, Bowel sounds present X 4 quads. Reports upper abdominal pain, cramping. : No deficits noted. No signs and/or symptoms were reported regarding the genitourinary system. Derm: No deficits noted. No signs and/or symptoms reported regarding the dermatologic system. Skin is intact, is healthy with good turgor, Skin is dry, Skin is normal, Skin temperature is warm. Musculoskeletal: No deficits noted. No signs and/or symptoms reported regarding the musculoskeletal system. Circulation, motion, and sensation intact. Range of motion: intact in all extremities. Historical: - Allergies: 22:38 Cold medicine; lg3 - Home Meds: 22:38 None [Active]; lg3 - PMHx: 22:38 high cholesterol; lg3 - PSHx: 22:38 Appendectomy; lg3 - Immunization history:: Adult Immunizations up to date, Client reports having NOT received the Covid vaccine. - Social history:: Smoking status: Patient denies any tobacco usage or history of. Patient uses alcohol, only on a social basis. Screenin:57 [facility] ED Fall Risk Assessment (Adult) History of falling in the last 3 months, lg3 including since admission No falls in past 3 months (0 pts). Abuse screen: Denies threats or abuse. Denies injuries from another. Nutritional screening: No deficits noted. Tuberculosis screening: No symptoms or risk factors identified. Assessment: 22:57 General: see triage assessment . lg3 10/29 00:20 Reassessment: Patient appears in no apparent distress at this time. Patient states kl feeling better. Patient states symptoms have improved. Vital Signs: 10/28 22:36 BP 131 / 92; Pulse 47; Resp 17 S; Temp 98.2(O); Pulse Ox 100% on R/A; Weight 86.18 kg lg3 (R); Height 5 ft. 6 in. ; 10/29 00:20 BP 124 / 78; Pulse 50; Resp 15; Pulse Ox 99% on R/A; kl 10/28 22:36 Body Mass Index 30.67 (86.18 kg, 167.64 cm) lg3 ED Course: 10/28 22:33 Patient arrived in ED. mr 22:37 Shiva Ragland MD is Attending Physician. [facility] 22:38 Triage completed. lg3 22:38 Arm band placed on right wrist. lg3 22:57 Patient has correct armband on for positive identification. Placed in gown. Bed in low lg3 position. Call light in reach. Side rails up X 1. Door closed. Noise minimized. Warm blanket given. Family accompanied patient. 22:57 No provider procedures requiring assistance completed. 22:57 Initial lab(s) drawn, by me, sent to lab. Urine collected: clean catch specimen, clear. lg3 Inserted saline lock: 20 gauge in left antecubital area, using aseptic technique. Blood collected. Patient maintains SpO2 saturation greater than 95% on room air. 22:58 CBC with Diff Sent. lg3 22:58 CMP Sent. lg3 22:58 Lipase Sent. lg3 22:58 Urinalysis w/ reflexes Sent. lg3 23:33 Carlos Bazan MD is Hospitalizing Provider. [facility] 23:39 US Abdomen Limited In Process Unspecified. EDOR 10/29 00:21 Patient admitted, IV remains in place. Administered Medications: 10/28 22:45 Drug: NS 0.9% IV 1000 ml Route: IV; Rate: 1 bolus; Site: left antecubital; 10/29 00:21 Follow up: IV Status: Completed infusion; IV Intake: 1000ml 10/28 22:50 Drug: Ondansetron IVP 4 mg Route: IVP; Site: left antecubital; 10/29 00:21 Follow up: Response: No adverse reaction; Marked relief of symptoms 10/28 22:54 Drug: Famotidine IVP 20 mg Route: IVP; Site: left antecubital; 10/29 00:21 Follow up: Response: No adverse reaction; Marked relief of symptoms 10/28 22:55 Drug: morphine IVP or IV 4 mg Route: IVP; Infused Over: 4 mins; Site: left antecubital; 10/29 00:21 Follow up: Response: No adverse reaction; Marked relief of symptoms 10/28 23:53 Drug: Piperacillin-Tazobactam IVPB 3.375 grams Route: IVPB; Infused Over: 60 mins; Site: left antecubital; Intake: 10/29 00:21 IV: 1000ml; Total: 1000ml. Outcome: 10/28 23:34 Decision to Hospitalize by Provider. [facility] 10/29 00:20 Admitted to [facility], via wheelchair, room 409, Report called to kevin Condition: improved Discharge instructions given to patient, family, Instructed on the need for admit, Demonstrated understanding of instructions. 00:47 Patient left the ED. kl Signatures: Dispatcher [employer] Nadeen Macias RN RN kl Anderson, Corey, MD MD [facility] Juany Irwin RN RN lg3 Corrections: (The following items were deleted from the chart) 10/28 22:39 22:38 PMHx: None; lg3 lg3 22:41 22:36 BP 131 / 92; Pulse 58bpm; Resp 17bpm; Spontaneous; Pulse Ox 100% RA; Temp 98.2F lg3 Oral; 86.18 kg Reported; Height 5 ft. 6 in.; BMI: 30.6; lg3
--- NOTE | 2022-10-28 23:34 | EDPHYS ---
Physician Documentation [facility] Name: Ambrocio Fontenot Age: 32 yrs Sex: Male : 1990 Arrival Date: 10/28/2022 Time: 22:30 Bed 11 Private MD: ED Physician Shiva Ragland HPI: 10/28 23:06 This 32 yrs old Male presents to ER via Ambulatory with complaints of rodney Abdominal Pain. 23:06 The patient presents with abdominal pain in the epigastric area, in the upper abdomen, rodney abdominal distention in the epigastric area. Onset: The symptoms/episode began/occurred just prior to arrival. The symptoms radiate to Associated signs and symptoms: Pertinent positives: nausea. The symptoms are described as constant, crampy. Modifying factors: The symptoms are alleviated by nothing, the symptoms are aggravated by nothing. Severity of pain: At its worst the pain was mild moderate in the emergency department the pain is unchanged. The patient has experienced similar episodes in the past, a few times. Historical: - Allergies: 22:38 Cold medicine; lg3 - Home Meds: 22:38 None [Active]; lg3 - PMHx: 22:38 high cholesterol; lg3 - PSHx: 22:38 Appendectomy; lg3 - Immunization history:: Adult Immunizations up to date, Client reports having NOT received the Covid vaccine. - Social history:: Smoking status: Patient denies any tobacco usage or history of. Patient uses alcohol, only on a social basis. ROS: 23:08 Constitutional: Negative for fever, chills, and weight loss, Eyes: Negative for injury, rodney pain, redness, and discharge, ENT: Negative for injury, pain, and discharge, Neck: Negative for injury, pain, and swelling, Cardiovascular: Negative for chest pain, palpitations, and edema, Respiratory: Negative for shortness of breath, cough, wheezing, and pleuritic chest pain, Back: Negative for injury and pain, : Negative for injury, bleeding, discharge, and swelling, MS/Extremity: Negative for injury and deformity, Skin: Negative for injury, rash, and discoloration, Neuro: Negative for headache, weakness, numbness, tingling, and seizure, Psych: Negative for depression, anxiety, suicide ideation, homicidal ideation, and hallucinations, Allergy/Immunology: Negative for hives, rash, and allergies, Endocrine: Negative for neck swelling, polydipsia, polyuria, polyphagia, and marked weight changes. 23:08 Abdomen/GI: Positive for abdominal pain, of the epigastric area, right upper quadrant and left upper quadrant. Exam: 23:08 Constitutional: This is a well developed, well nourished patient who is awake, alert, rodney and in no acute distress. Head/Face: Normocephalic, atraumatic. Eyes: Pupils equal round and reactive to light, extra-ocular motions intact. Lids and lashes normal. Conjunctiva and sclera are non-icteric and not injected. Cornea within normal limits. Periorbital areas with no swelling, redness, or edema. ENT: Nares patent. No nasal discharge, no septal abnormalities noted. Tympanic membranes are normal and external auditory canals are clear. Oropharynx with no redness, swelling, or masses, exudates, or evidence of obstruction, uvula midline. Mucous membranes moist. Neck: Trachea midline, no thyromegaly or masses palpated, and no cervical lymphadenopathy. Supple, full range of motion without nuchal rigidity, or vertebral point tenderness. No Meningismus. Chest/axilla: Normal chest wall appearance and motion. Nontender with no deformity. No lesions are appreciated. Cardiovascular: Regular rate and rhythm with a normal S1 and S2. No gallops, murmurs, or rubs. Normal PMI, no JVD. No pulse deficits. Respiratory: Lungs have equal breath sounds bilaterally, clear to auscultation and percussion. No rales, rhonchi or wheezes noted. No increased work of breathing, no retractions or nasal flaring. Back: No spinal tenderness. No costovertebral tenderness. Full range of motion. Male : Normal genitalia with no discharge or lesions. Skin: Warm, dry with normal turgor. Normal color with no rashes, no lesions, and no evidence of cellulitis. MS/ Extremity: Pulses equal, no cyanosis. Neurovascular intact. Full, normal range of motion. Neuro: Awake and alert, GCS 15, oriented to person, place, time, and situation. Cranial nerves II-XII grossly intact. Motor strength 5/5 in all extremities. Sensory grossly intact. Cerebellar exam normal. Normal gait. Psych: Awake, alert, with orientation to person, place and time. Behavior, mood, and affect are within normal limits. 23:08 Abdomen/GI: Inspection: abdomen appears normal, Bowel sounds: normal, Palpation: moderate abdominal tenderness, in the epigastric area and right upper quadrant. 23:08 Musculoskeletal/extremity: DVT Exam: No signs of deep vein thrombosis. no pain, no swelling, no tenderness, negative Homans' sign noted on exam, no appreciated bluish discoloration, no erythema, no increased warmth. Vital Signs: 22:36 BP 131 / 92; Pulse 47; Resp 17 S; Temp 98.2(O); Pulse Ox 100% on R/A; Weight 86.18 kg lg3 (R); Height 5 ft. 6 in. ; 10/29 00:20 BP 124 / 78; Pulse 50; Resp 15; Pulse Ox 99% on R/A; kl 10/28 22:36 Body Mass Index 30.67 (86.18 kg, 167.64 cm) lg3 MDM: 10/28 22:37 Patient medically screened. [facility] 23:09 Differential diagnosis: bowel obstruction, cholecystitis, Cholelithiasis, rodney diverticulitis, gastritis, non-specific abd pain, pancreatitis, Peptic Ulcer Disease, Peritonitis, Prostatitis, Pyelonephritis, Ureterolithiasis, urinary tract infection. Data reviewed: vital signs, nurses notes, lab test result(s), radiologic studies, CT scan, ultrasound. Consideration of Admission/Observation Escalation of care including admission/observation considered. I considered the following discharge prescriptions or medication management in the emergency department Medications were administered in the Emergency Department. See MAR. Independent interpretation of the following test(s) in the Emergency Department CT Scan: My interpretation is CT ABD PELVIS. Test considered but Not performed: Ultrasound USG ABD PAIN. 10/28 22:38 Order name: CBC with Diff; Complete Time: 23:31 [facility] 10/28 22:38 Order name: CMP; Complete Time: 23:31 [facility] 10/28 22:38 Order name: Lipase; Complete Time: 23:31 [facility] 10/28 22:38 Order name: Urinalysis w/ reflexes; Complete Time: 23:31 [facility] 10/28 22:38 Order name: CT Abd/Pelvis - IV Contrast Only [facility] 10/28 22:47 Order name: US Abdomen Limited [facility] 10/28 22:38 Order name: IV Saline Lock; Complete Time: 22:58 [facility] 10/28 22:38 Order name: Labs collected and sent; Complete Time: 22:58 rodney Administered Medications: 22:45 Drug: NS 0.9% IV 1000 ml Route: IV; Rate: 1 bolus; Site: left antecubital; 10/29 00:21 Follow up: IV Status: Completed infusion; IV Intake: 1000ml 10/28 22:50 Drug: Ondansetron IVP 4 mg Route: IVP; Site: left antecubital; 10/29 00:21 Follow up: Response: No adverse reaction; Marked relief of symptoms 10/28 22:54 Drug: Famotidine IVP 20 mg Route: IVP; Site: left antecubital; 10/29 00:21 Follow up: Response: No adverse reaction; Marked relief of symptoms 10/28 22:55 Drug: morphine IVP or IV 4 mg Route: IVP; Infused Over: 4 mins; Site: left antecubital; 10/29 00:21 Follow up: Response: No adverse reaction; Marked relief of symptoms 10/28 23:53 Drug: Piperacillin-Tazobactam IVPB 3.375 grams Route: IVPB; Infused Over: 60 mins; Site: left antecubital; Disposition Summary: 10/28/22 23:34 Hospitalization Ordered Hospitalization Status: Observation rodney Provider: Carlos Bazan cha [facility] rodney Condition: Stable rodney Problem: new rodney Symptoms: have improved rodney Bed/Room Type: Standard [facility] Room Assignment: 404(10/28/22 23:42) Diagnosis - Epigastric abdominal tenderness rodney - Cholecystitis, unspecified rodney - Other cholelithiasis with obstruction - STONE IN NECK rodney Forms: - Medication Reconciliation Form rodney - SBAR form rodney - Leadership Thank You Letter rodney Signatures: Dispatcher [employer] Nadeen Macias RN RN kl Anderson, Corey, MD MD cha Garcia, Cindy, RN RN cg Gibson, Lacie, RN RN lg3 Corrections: (The following items were deleted from the chart) 22:39 22:38 PMHx: None; lg3 lg3 23:42 23:34 rodney cg
[2022-10-29] MEDS ORDERED: NA CHLORIDE 0.9% 100 ML ONE
[2022-10-29] MEDS ORDERED: PIPERACIL/TAZO 3.375 GM VIAL IV ONE
[2022-10-29] MEDS ORDERED: ONDANSETRON 4 MG/2 ML VIAL IV PRN ×2 (00:35→14:56)
[2022-10-29] MEDS ORDERED: ACETAMINOPHEN 500 MG TAB PO PRN (00:35)
[2022-10-29 00:46] VITALS: BMI 30.7
[2022-10-29] MEDS: NS KCL 20MEQ 20 MEQ/1,000 ML BAG IV SCH ×3 (01:02→16:10)
[2022-10-29 06:18] LABS: Absolute Lymphocytes (CBC) 2.4 K/uL (0.7-4.9); Hematocrit 42.1 % (39.6-49.0); Lymphocytes % 27.2 % (15.3-44.8); MCV 89.9 fL (80-100); MPV 10.1 fL (7.6-11.3); Platelets 203 thou/uL (152-406); RBC Red Blood Cell Count 4.69 M/uL (4.33-5.43)
[2022-10-29 06:36] LABS: ALT/SGPT 53 U/L (16-61); AST/SGOT 19 U/L (15-37); Albumin 3.5 g/dL (3.4-5.0); Alkaline Phosphatase 61 U/L (45-117); BUN Blood Urea Nitrogen 11 mg/dL (7-18); Bicarbonate 29 mEq/L (21-32); Bilirubin Total 0.4 mg/dL (0.2-1.0); Glomerular Filtration Rate 98 ml/min (=/>90); Glucose Level 97 mg/dL (74-106); Lipase 50 U/L (13-75); Potassium 3.8 mEq/L (3.5-5.1); Protein, Total 6.9 g/dL (6.4-8.2); Sodium Level 138 mEq/L (136-145)
[2022-10-29 06:39] LABS: Bilirubin Direct < 0.1 mg/dL (0-0.2); Bilirubin Indirect, Calculated ND mg/dL (0.2-0.8)
[2022-10-29] MEDS: PIPER TAZO 3.375 GM in NA CHLORIDE 0.9% 100 ML IV SCH ×2 (08:33→17:52)
[2022-10-29] MEDS: FAMOTIDINE 20 MG/2 ML VIAL IV SCH ×2 (08:34→20:22)
[2022-10-29] MEDS ORDERED: Ringers Lactate 1,000 ML IV ONE (12:57)
[2022-10-29] MEDS ORDERED: LIDOCAINE 2% MPF 5 ML VIAL ONE (13:13)
[2022-10-29] MEDS ORDERED: FENTANYL CITR 100 MCG/2 ML ONE (13:13)
[2022-10-29] MEDS ORDERED: ROCURONIUM 50 MG/5 ML VIAL IV ONE (13:13)
[2022-10-29] MEDS ORDERED: propofoL 200 MG/20 ML VIAL IV ONE (13:13)
[2022-10-29] MEDS ORDERED: dexAMETHasone 4 MG/ML VIAL ONE (13:14)
[2022-10-29] MEDS ORDERED: ONDANSETRON 4 MG/2 ML VIAL ONE ×2 (13:14→15:18)
[2022-10-29] MEDS ORDERED: MIDAZOLAM HCL 2 MG/2 ML INJ ONE (13:14)
--- NOTE | 2022-10-29 13:40 | P.HP ---
Date of Service: 10/29/22 PC: This 60-year-old male presented to emergency room with severe right upper quadrant abdominal pain for diagnosis and treatment. HPC: Patient noticed pain in the right upper quadrant, radiating to his back. Describes it as a tremendous amount of pressure. Said it was worsening when he had his appendicitis. PSHx: Previous appendectomy PMHx: Negative Social Hx: Allergic to some [id number] cold medicine he is unsure of Sys R: No cough, wheeze, shortness of breath. No chest pain or palpitations. Denies any urinary complaints O/E: Awake alert vital signs are stable HEENT: Nonicteric Chest: Chest movement equal bilaterally Abd: Tender in the right upper quadrant Pitkin: Intact Data: Ultrasound demonstrates acute on chronic cholecystitis with c cholelithiasis Impression: Acute on chronic cholecystitis with cholelithiasis, biliary, Plan: I will taken the operating room for laparoscopic possible open cholec ystectomy. We will also do a cholangiogram. The risks of this procedure have been discussed. The possible bleeding, infection, injury to bowel is blood vessels and intestines has been described. The possible need for an open and or further surgeries and procedures was discussed. He understands and wants to proceed.
[2022-10-29] MEDS ORDERED: KETOROLAC 30 MG/ML INJ ONE (14:36)
[2022-10-29] MEDS: HYDROMORPHONE HCL 1 MG/ML INJ ONE ×6 (14:50→15:15)
--- NOTE | 2022-10-29 14:53 | P.OP ---
Preoperative diagnosis: Acute on chronic cholecystitis with cholelithiasis, biliary colic Postoperative diagnosis: The same Primary procedure: Laparoscopic cholecystectomy Secondary procedure: Cholangiogram Anesthesia: General Estimated blood loss: Less than 10 cc Specimen: Gallbladder and contents Operative Technique: The patient brought the operative room placed supine on the table. After the induction of adequate general endotracheal anesthesia, the area of the abdomen was prepped with a DuraPrep solution, he was draped in usual aseptic manner. Attention was turned towards the umbilicus. A skin incision was made. The Visiport was now used to enter the peritoneal cavity created pneumoperitoneum to approximate 12 mmHg. Under direct vision a 5 mm trocar was placed in the upper midline, and 2 other 5 mm trocars on the right lateral side of the abdomen. With the patient placed in reverse Trendelenburg and the table tilted to the left were able to visualize the right upper quadrant. We could see a distended gallbladder. A grasper was placed on the fundus. Elevated the gallbladder we could now visualize the body in the Mcginnis's pouch. This area was markedly ed ematous consistent with the findings of a stone stuck in the neck of the gallbladder. A grasper was placed on Mcginnis's pouch. Applying lateral traction we were able to dissect out and clear both the cystic duct and the cystic artery. Having obtained the critical view, 2 clips were placed on the cystic artery. Another clip was placed between the gallbladder and the cystic duct. An opening was made into the cystic duct through which we obtained a normal intraoperative cholangiogram there was good flow of contrast into the duodenum, no filling defects were noted. The catheter was now removed. Clips were placed on the distal portion of the cystic duct. The gallbladder was now dissected free from the liver bed after having transected the artery and the cystic duct completely and placed into an Endo Catch, and brought out through the umbilical trocar site at this point the was inspected to ensure adequate hemostasis. Irrigating fluid was after aspirated from the right upper quadrant. The ryan were now approximated using ryan after having closed the umbilical trocar site with 2 absorbable sutures placed using the Endo Close. At the end of the procedure he was stable and sent to the recovery room. Needle sponge instrument count were correct. No drains were placed. Complications: None Transferred to: Recovery Room Condition: Good
[2022-10-29] MEDS ORDERED: SUGAMMADEX SODIUM 200 MG/2 ML VIAL IV ONE (15:03)
[2022-10-29] MEDS ORDERED: MEPERIDINE HCL 25 MG/ML SYR ONE (15:20)
[2022-10-29] MEDS: HYDROCODONE/APAP 7.5/325 MG TAB PO PRN ×2 (16:17→21:27)
--- NOTE | 2022-10-29 16:21 | RAD REPORT ---
EXAM DESCRIPTION: RADCholangiogram Oper-Xray Or10/29/2022 3:15 pm CLINICAL HISTORY: Abdominal pain FINDINGS: The examination was performed by Dr. Bazan. The cystic duct was cannulated and contrast administered. Contrast flowed into the duodenum. The biliary tree is normal caliber without a filling defect seen. Fluoroscopy time 0.1 minute. Five fluoroscopic spot images obtained
[2022-10-29] MEDS: MORPHINE 4 MG/ML SYR IV PRN (17:50)
[2022-10-30] MEDS: NS KCL 20MEQ 20 MEQ/1,000 ML BAG IV SCH ×3 (00:35→08:35)
[2022-10-30] MEDS: MORPHINE 4 MG/ML SYR IV PRN (01:11)
[2022-10-30] MEDS: PIPER TAZO 3.375 GM in NA CHLORIDE 0.9% 100 ML IV SCH ×2 (01:13→08:32)
[2022-10-30 04:41] VITALS: O2SAT 98
[2022-10-30] MEDS: HYDROCODONE/APAP 7.5/325 MG TAB PO PRN (08:33)
[2022-10-30] MEDS: FAMOTIDINE 20 MG/2 ML VIAL IV SCH (08:33)
[2022-10-30 13:22] VITALS: BP 157/76; TEMP 98.3
== END 2022-10-30 14:14 | disposition home or self-care (01) ==
LOC: ER 22:30 → ERHOLD 23:35 → 4TH 10-29 00:25
PROVIDERS: ADMIT Surgery; ATTEND Surgery
PROC: BF10YZZ Fluoroscopy of Bile Ducts using Other Contrast (ICD-10-PCS; 2022-10-29)
PROC: 0FT44ZZ Resection of Gallbladder, Percutaneous Endoscopic Approach (ICD-10-PCS; principal; 2022-10-29 13:00)
DX: K80.12 Calculus of gallbladder with acute and chronic cholecystitis without obstruction (principal); E78.00 Pure hypercholesterolemia, unspecified
CPT/HCPCS: 96361; 85025 ×2; 80048; 36415; 80076; 88304; 81003; 83690 ×2; 80053; 74177; 74300; 76705; 96375; 96374; 99285; 47563; Q9967; J2704; J1100; J2543 ×5; J2001; J2250; J3010; J2175; J1170 ×2; J2405 ×3; J7120; J3480 ×3; G0378

== ENCOUNTER → 2023-03-30 | Emergency (ER) | payer BC ==
[~2023-03-30] MED LIST: ACETAMINOPHEN 500 MG TAB ONE
[2023-03-30 11:45] LABS: SARS-CoV-2 Antigen Rapid Res Positive (Negative)
--- NOTE | 2023-03-30 12:24 | RAD REPORT ---
EXAM DESCRIPTION: [place] Single View03/30/2023 11:40 am CLINICAL HISTORY: Cough COMPARISON: 2013 FINDINGS: The lungs appear clear of acute infiltrate. The heart is normal size IMPRESSION: No acute abnormalities displayed
--- NOTE | 2023-03-30 12:39 | EDPHYS ---
Physician Documentation [facility] Name: Ambrocio Fontenot Age: 33 yrs Sex: Male : 1990 Arrival Date: 03/30/2023 Time: 10:51 Bed 20 Private MD: ED Physician Silvia Huang HPI: 03/30 11:28 This 33 yrs old Male presents to ER via Ambulatory with complaints of Flu sp3 Symptoms. 11:28 33-year-old male with a history of hyperlipidemia now presents to the ED with chief sp3 complaint fever, cough, congestion, sore throat, body aches for 2 days. Positive sick contacts and friend. He denies any shortness of breath, chest pain, abdominal pain, nausea, vomiting, diarrhea, rash, travel history, bleeding, or any other signs or symptoms on ROS at this time.. Historical: - Allergies: 11:19 Cold medicine; hb - Home Meds: 11:19 None [Active]; hb - PMHx: 11:19 High Cholesterol; hb - PSHx: 11:19 Appendectomy; hb - Immunization history:: Adult Immunizations. - Social history:: Smoking status: Patient denies any tobacco usage or history of. ROS: 11:28 Constitutional: Negative for fever, chills, and weight loss, Eyes: Negative for injury, sp3 pain, redness, and discharge, Neck: Negative for injury, pain, and swelling, Cardiovascular: Negative for chest pain, palpitations, and edema, Abdomen/GI: Negative for abdominal pain, nausea, vomiting, diarrhea, and constipation, Back: Negative for injury and pain, MS/Extremity: Negative for injury and deformity, Skin: Negative for injury, rash, and discoloration, Neuro: Negative for headache, weakness, numbness, tingling, and seizure, Psych: Negative for depression, anxiety, suicide ideation, homicidal ideation, and hallucinations, Allergy/Immunology: Negative for hives, rash, and allergies, Endocrine: Negative for neck swelling, polydipsia, polyuria, polyphagia, and marked weight changes, 11:28 All other systems are negative, Exam: 11:29 Constitutional: This is a well developed, well nourished patient who is awake, alert, sp3 and in no acute distress. Head/Face: Normocephalic, atraumatic. Eyes: Pupils equal round and reactive to light, extra-ocular motions intact. Lids and lashes normal. Conjunctiva and sclera are non-icteric and not injected. Cornea within normal limits. Periorbital areas with no swelling, redness, or edema. Neck: Trachea midline, no thyromegaly or masses palpated, and no cervical lymphadenopathy. Supple, full range of motion without nuchal rigidity, or vertebral point tenderness. No Meningismus. Chest/axilla: Normal chest wall appearance and motion. Nontender with no deformity. No lesions are appreciated. Cardiovascular: Regular rate and rhythm with a normal S1 and S2. No gallops, murmurs, or rubs. Normal PMI, no JVD. No pulse deficits. Abdomen/GI: Soft, non-tender, with normal bowel sounds. No distension or tympany. No guarding or rebound. No evidence of tenderness throughout. Back: No spinal tenderness. No costovertebral tenderness. Full range of motion. Skin: Warm, dry with normal turgor. Normal color with no rashes, no lesions, and no evidence of cellulitis. MS/ Extremity: Pulses equal, no cyanosis. Neurovascular intact. Full, normal range of motion. Neuro: Awake and alert, GCS 15, oriented to person, place, time, and situation. Cranial nerves II-XII grossly intact. Motor strength 5/5 in all extremities. Sensory grossly intact. Cerebellar exam normal. Normal gait. Psych: Awake, alert, with orientation to person, place and time. Behavior, mood, and affect are within normal limits. 11:29 ENT: Upper respiratory congestion, pharyngeal erythema, active cough noted. Patient has a fever of 103.2.. Vital Signs: 11:06 BP 120 / 78; Pulse 98; Resp 18; Pulse Ox 96% on R/A; tl4 11:17 BP 120 / 78; Pulse 97; Resp 18; Temp 103.2(O); Pulse Ox 100% on R/A; Weight 83.91 kg; hb Height 5 ft. 6 in. ; Pain 8/10; 12:17 BP 105 / 56; Pulse 57; Resp 18; Pulse Ox 98% on R/A; tl4 11:17 Body Mass Index 29.86 (83.91 kg, 167.64 cm) hb 11:17 Pain Scale: Adult hb MDM: 11:12 Patient medically screened. sp3 11:29 Data reviewed: vital signs, nurses notes, lab test result(s), radiologic studies. ED sp3 course: 33-year-old male with URI symptoms. Differential diagnosis includes viral syndrome, COVID-19, influenza, strep throat, bronchitis, pneumonia, among others. I am not highly suspicious for sepsis, shock, ACS, aortic pathology, PE, or any other concerning pathways at this time. Workup will include chest x-ray and swabs and Tylenol p.o. for fever control. Disposition pending workup and patient course.. 12:37 ED course: Patient is positive for influenza and COVID-[address]. [address] patient on sp3 Tamiflu and discharged with PCP follow-up as needed. OTC antipyretics. Chest x-ray is negative.. 03/30 11:11 Order name: Flu; Complete Time: 12:37 sp3 03/30 11:11 Order name: SARS RAPID; Complete Time: 12:37 sp3 03/30 11:26 Order name: Strep sp3 03/30 11:46 Order name: Throat Culture [facility] 03/30 11:11 Order name: CXR XRAY; Complete Time: 12:37 sp3 Administered Medications: 11:25 Drug: Acetaminophen PO 1000 mg PO once Route: PO; db 12:47 Follow up: Response: No adverse reaction tl4 Disposition Summary: 03/30/23 12:38 Discharge Ordered Notes: Location: Home sp3 Condition: Stable sp3 Diagnosis - Influenza, COVID-19, febrile illness sp3 Followup: sp3 - With: Private Physician - When: Upon discharge from the Emergency Department - Reason: Continuance of care Discharge Instructions: - Discharge Summary Sheet sp3 - Influenza, Adult sp3 - COVID-19 sp3 Forms: - Medication Reconciliation Form sp3 - Thank You Letter sp3 - Antibiotic Education sp3 - Prescription Opioid Use sp3 - Patient Portal Instructions sp3 - Leadership Thank You Letter sp3 - Work release form tl4 Prescriptions: - Tamiflu 75 mg Oral capsule - take 1 tablet ORAL route every 12 hours for 5 days; 10 tablet; Refills: 0, sp3 Product Selection Permitted Signatures: Dispatcher [facility] Xena Pierce RN RN hb Patel, Setul, MD MD sp3 Gayle Montez RN RN db Logdahl, Ashok tl4
--- NOTE | 2023-03-30 12:39 | ER ---
Nurse's Notes [facility] Name: Ambrocio Fontenot Age: 33 yrs Sex: Male : 1990 Arrival Date: 03/30/2023 Time: 10:51 Bed 20 Private MD: Diagnosis: Influenza, COVID-19, febrile illness Presentation: 03/30 11:17 Chief complaint: Subjective fever, chills, headache, sore throat, body aches, nausea, hb and malaise x 3 days. Last had Motrin at 0800 today. Coronavirus screen: Client presents with at least one sign or symptom that may indicate coronavirus-19. Standard/surgical mask placed on the client. Provider contacted for isolation considerations. Ebola Screen: No symptoms or risks identified at this time. Initial Sepsis Screen: Does the patient meet any 2 criteria? Temp <36.0*C (96.8*F)) or > 38.3*C (100.9*F). HR > 90 bpm. Yes Does the patient have a suspected source of infection? No. Patient's initial sepsis screen is negative. Risk Assessment: Do you want to hurt yourself or someone else? Patient reports no desire to harm self or others. Onset of symptoms was March 28, 2023. 11:17 Method Of Arrival: Ambulatory hb 11:17 Acuity: HUGO 3 hb Historical: - Allergies: 11:19 Cold medicine; hb - Home Meds: 11:19 None [Active]; hb - PMHx: 11:19 High Cholesterol; hb - PSHx: 11:19 Appendectomy; hb - Immunization history:: Adult Immunizations. - Social history:: Smoking status: Patient denies any tobacco usage or history of. Screenin:34 [facility] ED Fall Risk Assessment (Adult) History of falling in the last 3 months, db including since admission No falls in past 3 months (0 pts) Confusion or Disorientation No (0 pts) Intoxicated or Sedated No (0 pts) Impaired Gait No (0 pts) Mobility Assist Device Used No (0 pt) Altered Elimination No (0 pt) Score/Fall Risk Level 0 - 2 = Low Risk Oriented to surroundings, Maintained a safe environment. Abuse screen: Denies threats or abuse. Denies injuries from another. Nutritional screening: No deficits noted. Tuberculosis screening: No symptoms or risk factors identified. Assessment: 11:20 Reassessment: Patient appears in no apparent distress at this time. Patient and/or db family updated on plan of care and expected duration. Pain level reassessed. Patient is alert, oriented x 3, equal unlabored respirations, skin warm/dry/pink. General: Appears in no apparent distress. comfortable, Behavior is calm, cooperative. Pain: Complains of pain in face. Neuro: Level of Consciousness is awake, alert, obeys commands, Oriented to person, place, time, situation. Respiratory: Airway is patent Respiratory effort is even, unlabored, Respiratory pattern is regular, symmetrical. 12:52 Reassessment: Patient appears in no apparent distress at this time. Patient and/or tl4 family updated on plan of care and expected duration. Pain level reassessed. Patient is alert, oriented x 3, equal unlabored respirations, skin warm/dry/pink. Vital Signs: 11:06 BP 120 / 78; Pulse 98; Resp 18; Pulse Ox 96% on R/A; tl4 11:17 BP 120 / 78; Pulse 97; Resp 18; Temp 103.2(O); Pulse Ox 100% on R/A; Weight 83.91 kg; hb Height 5 ft. 6 in. ; Pain 8/10; 12:17 BP 105 / 56; Pulse 57; Resp 18; Pulse Ox 98% on R/A; tl4 11:17 Body Mass Index 29.86 (83.91 kg, 167.64 cm) hb 11:17 Pain Scale: Adult hb ED Course: 10:53 Patient arrived in ED. im 11:11 Silvia Huang MD is Attending Physician. sp3 11:19 Triage completed. hb 11:19 Arm band placed on. hb 11:25 SARS RAPID Sent. jg11 11:25 Flu Sent. jg11 11:31 Strep Sent. jg11 11:31 SARS RAPID Sent. jg11 11:31 Flu Sent. jg11 11:31 Strep swab sent to lab. jg11 11:32 Gayle Montez, DARRYL is Primary Nurse. db 11:34 Patient has correct armband on for positive identification. Bed in low position. Call db light in reach. Side rails up X 1. Pulse ox on. NIBP on. Warm blanket given. 11:42 CXR XRAY In Process Unspecified. EDMS 12:52 Provided Education on: DISCHARGE. tl4 12:52 No provider procedures requiring assistance completed. Patient did not have IV access tl4 during this emergency room visit. Administered Medications: 11:25 Drug: Acetaminophen PO 1000 mg PO once Route: PO; db 12:47 Follow up: Response: No adverse reaction tl4 Medication: 12:52 VIS not applicable for this client. tl4 Outcome: 12:38 Discharge ordered by . sp3 12:49 Discharged to home ambulatory, with family, tl4 12:49 Condition: stable 12:49 Discharge instructions given to patient, Instructed on discharge instructions, follow up and referral plans. Prescriptions given X 1, 12:52 Patient left the ED. tl4 Signatures: Dispatcher [employer] EDMS Xena Pierce, RN RN Silvia Barnett MD MD sp3 Gayle Montez RN RN Nayana Vidal Toni tl4 Prateek Corona jg11
[2023-03-30 12:59] VITALS: BP 105/56; TEMP 103.2; O2SAT 98
== END ==
LOC: ER 10:51
DX: U07.1 COVID-19 (principal); J11.1 Influenza due to unidentified influenza virus with other respiratory manifestations; Z88.8 Allergy status to other drugs, medicaments and biological substances
CPT/HCPCS: 36415; 71045; 87070; 87081; 87804; 87811

== ENCOUNTER 2023-10-19 20:52 | Emergency (ER) | payer BC ==
[2023-10-19] MEDS ORDERED: IBUPROFEN 200 MG TAB PO ONE (21:27)
[2023-10-19] MEDS ORDERED: ACETAMINOPHEN 500 MG TAB ONE (21:27)
[2023-10-19 22:06] LABS: SARS-CoV-2 Antigen CONTROL BLUE LINE VIS/BG OK; SARS-CoV-2 Antigen Rapid Res Negative (Negative)
--- NOTE | 2023-10-19 22:20 | EDPHYS ---
Physician Documentation [facility] Name: Ambrocio Fontenot Age: 33 yrs Sex: Male : 1990 Arrival Date: 10/19/2023 Time: 20:52 Bed IW2 Private MD: ED Physician Vikram Mancuso HPI: 10/18 23:09 This 33 yrs old Male presents to ER via Ambulatory with complaints of Flu kb Symptoms, Cough, Fever, Headache. 23:09 Patient is a 33-year-old male who presents for fever, chills, headache, slight cough, kb congestion and sore throat that started this morning. No alleviating or aggravating factors. States symptoms have progressively gotten worse throughout the day.. Historical: - Allergies: 21:23 Cold medicine; bm8 - Home Meds: 21:23 None [Active]; bm8 - PMHx: 21:23 High Cholesterol; bm8 - PSHx: 21:23 Appendectomy; bm8 - Immunization history:: Adult Immunizations unknown. - Infectious Disease History:: Denies. - Social history:: Smoking status: Patient denies any tobacco usage or history of. ROS: 23:08 Constitutional: As per HPI kb Exam: 23:08 Constitutional: This is a well developed, well nourished patient who is awake, alert, kb and in no acute distress. Head/Face: Normocephalic, atraumatic. Cardiovascular: Regular rate Respiratory: Respirations even and unlabored. No increased work of breathing. Talking in full sentences Skin: Warm, dry with normal turgor. Normal color. MS/ Extremity: Pulses equal, no cyanosis. Neurovascular intact. Full, normal range of motion. Neuro: Awake and alert, GCS 15, oriented to person, place, time, and situation. Moves all extremities. Normal gait. 23:08 ENT: Posterior pharynx: Airway: normal, no evidence of obstruction, Tonsils: bilaterally enlarged, with erythema, Uvula: normal, midline, swelling, that is mild, erythema, that is moderate, Vital Signs: 21:21 BP 167 / 82; Pulse 79; Resp 18; Temp 102.3; Pulse Ox 100% ; Weight 86.18 kg; Height 5 bm8 ft. 6 in. ; Pain 8/10; 22:59 BP 145 / 95; Pulse 76; Resp 17; Temp 100.2; Pulse Ox 97% ; vc1 21:21 Body Mass Index 30.67 (86.18 kg, 167.64 cm) bm8 21:21 Pain Scale: Adult bm8 MDM: 20:59 Patient medically screened. kb 23:09 Differential diagnosis: covid, flu, uri, strep. Data reviewed: vital signs, nurses kb notes. Counseling: I had a detailed discussion with the patient and/or guardian regarding the historical points, exam findings, and any diagnostic results supporting the discharge/admit diagnosis, lab results, the need for outpatient follow up, a family practitioner, to return to the emergency department if symptoms worsen or persist or if there are any questions or concerns that arise at home. 10/18 21:23 Order name: SARS-COV-2 Antigen Rapid; Complete Time: 22:19 kb 10/18 21:23 Order name: Strep; Complete Time: 22:00 kb 10/18 21:23 Order name: Flu; Complete Time: 22:33 kb Administered Medications: 21:30 Drug: Ibuprofen PO 600 mg PO once Route: PO; bm8 23:02 Follow up: Response: No adverse reaction; Temperature is decreased vc1 21:30 Drug: Acetaminophen PO 1000 mg PO once Route: PO; bm8 23:02 Follow up: Response: No adverse reaction; Marked relief of symptoms; Temperature is vc1 decreased 23:01 Drug: Amoxicillin-Clavulanate PO 875 mg PO once Route: PO; vc1 23:01 Follow up: Response: Medication administered at discharge. vc1 Disposition: 10/19 02:51 Co-signature as Attending Physician, Vikram Mancuso MD I reviewed the patient's care rt provided by the Advanced Practice Provider and agree with the diagnosis and treatment plan. Disposition Summary: 10/19/23 22:19 Discharge Ordered Notes: Location: Home kb Condition: Stable kb Diagnosis - Streptococcal pharyngitis kb Followup: kb - With: Emergency Department - When: As needed - Reason: Worsening of condition Followup: kb - With: Private Physician - When: 2 - 3 days - Reason: Recheck today's complaints, Continuance of care, Re-evaluation by your physician Discharge Instructions: - Discharge Summary Sheet kb - Strep Throat, Adult, [id number] kb Forms: - Medication Reconciliation Form kb - Antibiotic Education kb - Prescription Opioid Use kb - Patient Portal Instructions kb - Leadership Thank You Letter kb Prescriptions: - Augmentin 875-125 mg Oral Tablet - take 1 tablet ORAL route every 12 hours for 10 days; 20 tablet; Refills: 0, kb Product Selection Permitted Signatures: Dispatcher [employer] EDMS Maddy Ferrer, FELIPE CALDERON-Shira Barbosa, RN RN vc1 Vikram Mancuso MD MD rt Lane Toribio RN RN bm8 Corrections: (The following items were deleted from the chart) 10/18 21:23 21:23 SARS-COV-2 Antigen Rapid+I.LAB.BRZ ordered. EDMS EDMS 21:23 21:23 Group A Streptococcus Rapid Sc+BA.LAB.BRZ ordered. EDMS EDMS 21:23 21:23 Influenza Screen (A \T\ B)+BA.LAB.BRZ ordered. EDMS EDMS
--- NOTE | 2023-10-19 22:20 | ER ---
Nurse's Notes [facility] Name: Ambrocio Fontenot Age: 33 yrs Sex: Male : 1990 Arrival Date: 10/19/2023 Time: 20:52 Bed IW2 Private MD: Diagnosis: Streptococcal pharyngitis Presentation: 10/18 21:21 Chief complaint: Patient states: i have chills body aches fever headache and sore bm8 throat. Coronavirus screen: Vaccine status: Patient reports being unvaccinated. Ebola Screen: Patient negative for fever greater than or equal to 101.5 degrees Fahrenheit, and additional compatible Ebola Virus Disease symptoms Patient denies exposure to infectious person. Patient denies travel to an Ebola-affected area in the 21 days before illness onset. No symptoms or risks identified at this time. Initial Sepsis Screen: Does the patient meet any 2 criteria? No. Patient's initial sepsis screen is negative. Does the patient have a suspected source of infection? No. Patient's initial sepsis screen is negative. Risk Assessment: Do you want to hurt yourself or someone else? Patient reports no desire to harm self or others. Onset of symptoms was October 19, 2023 at 08:00. 21:21 Method Of Arrival: Ambulatory bm8 21:21 Acuity: HUGO 4 bm8 Triage Assessment: 21:23 Headache History: The patient has had previous headaches and this one is different than bm8 previous episodes. General: Appears in no apparent distress. uncomfortable, Behavior is calm, cooperative, appropriate for age. Pain: Complains of pain in head generalized bodyaches Pain currently is 8 out of 10 on a pain scale. Pain began 1 day ago. EENT: Nares with drainage noted. Neuro: No deficits noted. Level of Consciousness is awake, alert, obeys commands, Oriented to person, place, time, situation, Appropriate for age. Cardiovascular: Denies chest pain, Capillary refill < 3 seconds Patient's skin is warm and dry. Respiratory: Airway is patent Trachea midline Respiratory effort is even, unlabored, Respiratory pattern is regular, symmetrical, Breath sounds are clear bilaterally. GI: No signs and/or symptoms were reported involving the gastrointestinal system. : No signs and/or symptoms were reported regarding the genitourinary system. Derm: No signs and/or symptoms reported regarding the dermatologic system. Musculoskeletal: No signs and/or symptoms reported regarding the musculoskeletal system. Historical: - Allergies: 21:23 Cold medicine; bm8 - Home Meds: 21:23 None [Active]; bm8 - PMHx: 21:23 High Cholesterol; bm8 - PSHx: 21:23 Appendectomy; bm8 - Immunization history:: Adult Immunizations unknown. - Infectious Disease History:: Denies. - Social history:: Smoking status: Patient denies any tobacco usage or history of. Screenin:02 Abuse screen: Denies threats or abuse. Nutritional screening: No deficits noted. vc1 Tuberculosis screening: No symptoms or risk factors identified. Assessment: 23:01 Reassessment: Patient appears in no apparent distress at this time. Patient and/or vc1 family updated on plan of care and expected duration. Pain level reassessed. Patient is alert, oriented x 3, equal unlabored respirations, skin warm/dry/pink. Patient states symptoms have improved. Pain: Complains of pain in throat. Respiratory: Airway is patent Respiratory effort is even, unlabored, Respiratory pattern is regular, symmetrical. Vital Signs: 21:21 BP 167 / 82; Pulse 79; Resp 18; Temp 102.3; Pulse Ox 100% ; Weight 86.18 kg; Height 5 bm8 ft. 6 in. ; Pain 8/10; 22:59 BP 145 / 95; Pulse 76; Resp 17; Temp 100.2; Pulse Ox 97% ; vc1 21:21 Body Mass Index 30.67 (86.18 kg, 167.64 cm) bm8 21:21 Pain Scale: Adult bm8 ED Course: 20:54 Patient arrived in ED. gm2 20:59 Maddy Ferrer FNP-C is PHCP. kb 20:59 Vikram Mancuso MD is Attending Physician. kb 21:23 Triage completed. bm8 21:23 Arm band placed on right wrist. bm8 Administered Medications: 21:30 Drug: Ibuprofen PO 600 mg PO once Route: PO; bm8 23:02 Follow up: Response: No adverse reaction; Temperature is decreased vc1 21:30 Drug: Acetaminophen PO 1000 mg PO once Route: PO; bm8 23:02 Follow up: Response: No adverse reaction; Marked relief of symptoms; Temperature is vc1 decreased 23:01 Drug: Amoxicillin-Clavulanate PO 875 mg PO once Route: PO; vc1 23:01 Follow up: Response: Medication administered at discharge. vc1 Outcome: 22:19 Discharge ordered by . patti 23:02 Discharged to home ambulatory, vc1 23:02 Condition: good 23:02 Discharge instructions given to patient, Instructed on discharge instructions, follow up and referral plans. medication usage, Demonstrated understanding of instructions, follow-up care, medications, Prescriptions given X 1, :02 Patient left the ED. vc1 Signatures: Maddy Ferrer, CARMELINAC KVNG-Shira Barbosa, RN RN vc1 Sarah Gomez gm2 Lane Toribio RN RN bm8
[2023-10-19] MEDS ORDERED: AMOX/K CLAV 875 MG TAB ONE (22:57)
[2023-10-20 00:33] VITALS: BP 167/82; TEMP 102.3; O2SAT 100
== END 2023-10-19 23:02 | disposition home or self-care (01) ==
LOC: ER 20:52
DX: J02.0 Streptococcal pharyngitis (principal); Z11.52 Encounter for screening for COVID-19
CPT/HCPCS: 36415; 87081; 87804; 87811; 99283